=== PATIENT | female | born 1960 | race Caucasian/White ===

== ENCOUNTER 2016-09-16 07:10 | Emergency (ER) | payer BC ==
[2016-09-16 07:28] VITALS: BP 124/71
--- NOTE | 2016-09-16 07:45 | ED Physician Documentation ---
Lower Extremity Problem - HISTORIAN Historian: patient - HPI Stated Complaint: foot pain & swelling Chief Complaint: Lower Extremity Problem Additional Information: states her leg and foot started swelling yesterday and now it villegas and hurts like fire from the hip to the toes. she states that a new rash came up yesterday around the ankle, but she has the same rash on her other leg that doesn't hurt. she states it is not as swollen today but still villegas. her job made her come. her daughetr is "a nurse' and told her it's a blood clot. Location of Injury: L foot, L ankle, L leg, L thigh Onset: days ago Timing: still present, better Duration: constant Recent Injury: No Severity: mild Quality: pain, swelling, tenderness Exacerbated By: nothing Relieved By: nothing Associated Symptoms: denies: chest pain, shortness of breath, rapid heart rate Further Comments: no - ROS CONST: no problems MS/SKIN/LYMPH: leg swelling, rash, leg pain, ankle swelling CVS/RESP: none GI/: none EYES/ENT: none NERUO/PSYCH: denies: headache - PAST HX Past History: none PE Risk Factors: cancer (lymphome x 8 years, hist of cervical CA) Other History: hypertension Surgeries/Procedures: appendectomy, cholecystectomy, hysterectomy Immunizations: UTD Allergies/Adverse Reactions: Allergies Allergy/AdvReac Type Severity Reaction Status Date / Time Sulfa (Sulfonamide Allergy Hives Verified 09/16/16 07:28 Antibiotics) Home Medications: Ambulatory Orders Medication Instructions Recorded Metoprolol Succinate [Toprol XL] 25 mg PO BID 04/19/13 Cyclobenzaprine HCl [Flexeril] mg PO QD 09/16/16 Lisinopril [Zestril] 40 mg PO QDAY 09/16/16 Naproxen [Naprosyn] PO BID 09/16/16 Sertraline HCl [Zoloft] PO QDAY 09/16/16 amLODIPine BESYLATE [Norvasc] 10 mg PO 0900 09/16/16 - SOCIAL HX Smoking History: cigarettes Alcohol Use: none Drug Use: none - FAMILY HX Family History: none - VITAL SIGNS Vital Signs: Vital Signs Temp Pulse Resp BP Pulse Ox 98.1 F 69 12 124/71 99 09/16/16 07:12 09/16/16 07:12 09/16/16 07:12 09/16/16 07:12 09/16/16 07:12 - REVIEWED ASSESSMENTS Nursing Assessment Reviewed: Yes Vitals Reviewed: Yes ED Results Lab/Radiology - Orders Orders: ED Orders Category Date Time Status CBC/PLATELET/DIFF Routine Lab 09/16/16 Ordered CMP [CMP] Routine Lab 09/16/16 Ordered D DIMER Stat Lab 09/16/16 Ordered Lower Extremity Problem - EXAM General Appearance: no distress Hips: left hip: pain, soft tissue tenderness, swelling, bilateral hip: normal inspection, normal range of motion, no evidence of injury, N/A: ecchymosis Legs: left: pain, soft tissue tenderness, swelling Ankle: left: soft tissue tenderness, swelling Foot: left foot: pain, soft tissue tenderness, swelling Neuro/Tendon: normal sensation, normal motor functions, normal tendon functions EENT: ENT inspection normal RESPIRATORY: no resp distress CVS: reg rate & rhythm JOINT: nml ROM, Nml gait/weight bearing VASCULAR: no vascular compromise NEURO/PSYCH: oriented X3 SKIN: warm/dry, other (has hyperpigmented, circumferential rash around both ankles, L>R) Discharge Clincal Impression: Edema of lower extremity Qualifiers: Laterality: left Qualified Code(s): R60.0 - Localized edema Home Medications: Ambulatory Orders Metoprolol Succinate [Toprol XL] 25 mg PO BID 04/19/13 Cyclobenzaprine HCl [Flexeril] mg PO QD 09/16/16 Lisinopril [Zestril] 40 mg PO QDAY 09/16/16 Naproxen [Naprosyn] PO BID 09/16/16 Sertraline HCl [Zoloft] PO QDAY 09/16/16 amLODIPine BESYLATE [Norvasc] 10 mg PO 0900 09/16/16 Disposition: 07 AGAINST MEDICAL ADVICE Decision to Admit: NO Date of Decison to Admit: 09/16/16 Decision Time: 08:22
== END 2016-09-16 08:11 | disposition left against medical advice (07) ==
LOC: ED 07:10
DX: R60.0 Localized edema (principal); F17.210 Nicotine dependence, cigarettes, uncomplicated
CPT/HCPCS: 99283